=== PATIENT | female | born 1960 | race Two or more races ===

== ENCOUNTER 2025-09-10 09:52 | Outpatient (CLI) | payer OTHER ==
[2025-09-10 12:09] LABS: T4 FREE 1.09 NG/ML (0.76-1.46)
[2025-09-10 12:12] LABS: TSH 7.31 uIU/mL (0.358-3.74)
== END 2025-09-10 09:57 | disposition home or self-care (01) ==
LOC: LAB 09:52
PROVIDERS: ATTEND Internal Medicine Endocrinology, Diabetes & Metabolism
DX: E03.8 Other specified hypothyroidism (principal)